=== PATIENT | male | born 1990 | race Two or more races ===

== ENCOUNTER 2024-10-13 10:13 | Emergency (ER) | payer OTHER ==
[~2024-10-13] VITALS: Ht 175.3 cm; Wt 99.8 kg
[2024-10-13 10:32] VITALS: BP 162/94; TEMP 98.1
[2024-10-13 11:14] LABS: APPEARANCE,URINE CLEAR (CLEAR); BILIRUBIN,URINE 1+ (NEGATIVE); BLOOD, URINE 3+ Ery/uL (NEGATIVE); COLOR,URINE YELLOW (YELLOW); KETONES,URINE 1+ mg/dL (NEGATIVE); LEUKOCYTE ESTERASE ,URINE NEGATIVE (NEGATIVE); NITRITE, URINE NEGATIVE (NEGATIVE); PROTEIN,URINE TRACE mg/dl (NEGATIVE); UGLUCOSE NEGATIVE (NEGATIVE); UROBILINOGEN,URINE 0.2 EU/dL (0.2)
[2024-10-13] MEDS ORDERED: CEFTRIAXONE 500 MG VIAL ONE (11:40)
[2024-10-13] MEDS ORDERED: LIDOCAINE 1% INJ 50 ML MDV IJ ONE (11:41)
[2024-10-13] MEDS: CEFTRIAXONE 500 MG VIAL IM ONE (11:56)
[2024-10-13] MEDS ORDERED: DOXY100T2 PO (13:27)
[2024-10-13 13:56] VITALS: O2SAT 99
[2024-10-13 14:49] LABS: ADD URINE CULTURE YES; BACTERIA,URINE 1+ /HPF (None Seen); SQUAMOUS EPITHELIAL CELL,UR Few /HPF (None Seen); WBC,URINE 0-2 /HPF (0-3)
[2024-10-15 23:09] LABS: CHLAMYDIA TRACHOMATIS NAA Negative (Negative); NEISSERIA GONORRHOEAE NAA Negative (Negative)
== END 2024-10-13 13:57 | disposition home or self-care (01) ==
LOC: ER 10:22
DX: R36.1 Hematospermia (principal)
CPT/HCPCS: 99285; 96372; 76870; 87086; 81001; 87491; 87591; J3490; J0696